=== PATIENT | female | born 1980 | race Two or more races ===

== ENCOUNTER 2018-06-03 09:18 | Emergency (ER) | payer SELFPAY ==
--- NOTE | 2018-06-03 09:35 | ER Document Report ---
HPI - HPI Patient complains to provider of: Skin rash Onset: Last week Onset/Duration: Persistent Quality of pain: No pain Pain Level: Denies Context: Patient presents complaining of pruritic skin rash to the right arm, left axillary area and bilateral sides of neck for the past week. Patient denies any new foods medications or detergents. Patient denies any known history of eczema. Associated Symptoms: Other - Skin rash Exacerbated by: Denies Relieved by: Denies Similar symptoms previously: No Recently seen / treated by doctor: No - ROS ROS below otherwise negative: Yes Systems Reviewed and Negative: Yes All other systems reviewed and negative - CONSTITUTIONAL Constitutional: DENIES: Fever, Chills - GASTROINTESTINAL Gastrointestinal: DENIES: Nausea - MUSCULOSKELETAL Musculoskeletal: REPORTS: Extremity pain - DERM Skin Color: Normal Skin Problems: Rash Past Medical History - General Information source: Patient - Social History Smoking Status: Never Smoker Chew tobacco use (# tins/day): No Frequency of alcohol use: None Drug Abuse: None Occupation: None Family History: Reviewed & Not Pertinent Patient has suicidal ideation: No Patient has homicidal ideation: No - Medical History Medical History: Negative Renal/ Medical History: Denies: Hx Peritoneal Dialysis Past Surgical History: Reports: Hx Section Vertical Provider Document - CONSTITUTIONAL Agree With Documented VS: Yes Exam Limitations: No Limitations General Appearance: WD/WN, No Apparent Distress - INFECTION CONTROL TRAVEL OUTSIDE OF THE [place] IN LAST 30 DAYS: No - HEENT HEENT: Atraumatic, Normal ENT Exam, Normocephalic - NECK Neck: Normal Inspection, Supple - RESPIRATORY Respiratory: Breath Sounds Normal, No Respiratory Distress - CARDIOVASCULAR Cardiovascular: Regular Rate, Regular Rhythm - BACK Back: Normal Inspection - MUSCULOSKELETAL/EXTREMETIES Musculoskeletal/Extremeties: MAEW - NEURO Level of Consciousness: Awake, Alert, Appropriate Motor/Sensory: No Motor Deficit - DERM Integumentary: Warm, Dry, Rash - Patient with dry raised rash to flexural aspect of right antecubital area, bilateral aspects of the anterior neck and left axillary area Course - Re-evaluation Re-evalutation: 06/03/18 09:36 Rash looks concerning for eczema, will cover with steroids and recommend frequent use of emollients. No peeling of the skin, no concern for Huang- Arnie syndrome, patient otherwise nontoxic. No concern for anaphylaxis. - Vital Signs Vital signs: Temp Pulse Resp BP Pulse Ox 98.5 F 86 16 133/88 H 98 06/03/18 09:22 06/03/18 09:22 06/03/18 09:22 06/03/18 09:22 06/03/18 09:22 Discharge - Discharge Clinical Impression: Skin rash Condition: Stable Disposition: HOME, SELF-CARE Instructions: Atopic Dermatitis (Eczema) ([facility]), Topical Steroid Cream or Ointment ([facility]) Additional Instructions: Return immediately for any new or worsening symptoms Followup with your primary care provider, call tomorrow to make a followup appointment Follow-up with a mainframe programmer analyst for any persistent problems Use a moisturizer [id number] such as Lubriderm, Cetaphil or Aquaphor at least 3 times a day. Prescriptions: Triamcinolone Acetonide [Aristocort 0.1% Cream] 1 applic TP TID #60 gm Referrals: RAHEL MANCINI DO [ACTIVE STAFF] - Follow up as needed
[2018-06-03 10:17] VITALS: BP 130/82
== END 2018-06-03 10:17 | disposition home or self-care (01) ==
LOC: ER 09:18
DX: R21 Rash and other nonspecific skin eruption (principal)
CPT/HCPCS: 99282

== ENCOUNTER → 2018-12-06 | Outpatient (CLI) | payer MEDICAID ==
--- NOTE | 2018-12-06 17:19 | RADIOLOGY REPORT (SQ) ---
EXAM DESCRIPTION: WRIST RIGHT 3 VIEWS COMPLETED DATE/TIME: 12/06/2018 5:09 pm REASON FOR STUDY: S69.91XA UNSP INJURY OF RIGHT WRIST, HAND AND FINGER(S), INIT ENCNTR S69.91XA UNS P INJURY OF RIGHT WRIST, HAND AND FINGER(S), INI COMPARISON: None. NUMBER OF VIEWS: Three views. TECHNIQUE: AP, lateral, and oblique radiographic images acquired of the right wrist. LIMITATIONS: None. FINDINGS: MINERALIZATION: Normal. BONES: No acute fracture or dislocation. No worrisome bone lesions. Normal alignment. SOFT TISSUES: No soft tissue swelling. No foreign body. OTHER: No other significant finding. IMPRESSION: 1. No acute osseous findings. TECHNICAL DOCUMENTATION: JOB ID: [id number] [employer]- All Rights Reserved Reading location - IP/workstation name: [email or web address]
== END ==
LOC: RAD 16:46
PROVIDERS: ATTEND Nurse Practitioner Acute Care
DX: S69.91XA Unspecified injury of right wrist, hand and finger(s), initial encounter (principal); X58.XXXA Exposure to other specified factors, initial encounter

== ENCOUNTER → 2019-05-26 | Outpatient (CLI) | payer MEDICAID | LOC: LAB 10:49 | PROVIDERS: ATTEND Nurse Practitioner Acute Care | DX: O23.41 Unspecified infection of urinary tract in pregnancy, first trimester (principal); Z3A.00 Weeks of gestation of pregnancy not specified | CPT/HCPCS: 87086; 87088; 87186 ==

== ENCOUNTER 2019-06-08 11:07 | Emergency (ER) | payer MEDICAID ==
--- NOTE | 2019-06-08 11:49 | ER Document Report ---
ED Medical Screen (RME) - General Chief Complaint: Abdominal Pain Stated Complaint: ABDOMINAL PAIN/ Time Seen by Provider: 06/08/19 11:40 Primary Care Provider: JACE DICKEY NP [Primary Care Provider] - Follow up as needed Mode of Arrival: Ambulatory Information source: Patient Notes: Patient presents complaining of lower abdominal pain that started yesterday. Patient states she is about 7 weeks . Patient denies any vaginal bleeding or discharge. No urinary symptoms. I have greeted and performed a rapid initial assessment of this patient. A comprehensive ED assessment and evaluation of the patient, analysis of test results and completion of the medical decision making process will be conducted by additional ED providers. TRAVEL OUTSIDE OF THE [place] IN LAST 30 DAYS: No - Related Data Allergies/Adverse Reactions: No Known Allergies Allergy (Verified 06/03/18 09:19) Past Medical History Renal/ Medical History: Denies: Hx Peritoneal Dialysis Past Surgical History: Reports: Hx Section Physical Exam - Vital signs Vitals: Temp Pulse Resp BP Pulse Ox 99.1 F 95 16 139/71 H 100 06/08/19 11:11 06/08/19 11:11 06/08/19 11:11 06/08/19 11:11 06/08/19 11:11 - Abdominal Tenderness: Tender - Lower pelvic Course - Vital Signs Vital signs: Temp Pulse Resp BP Pulse Ox 99.1 F 95 16 139/71 H 100 06/08/19 11:11 06/08/19 11:11 06/08/19 11:11 06/08/19 11:11 06/08/19 11:11 - Laboratory Result Diagrams: 06/08/19 11:34 06/08/19 11:34 Doctor's Discharge - Discharge Referrals: JACE DICKEY NP [Primary Care Provider] - Follow up as needed
[2019-06-08 11:55] LABS: ABSOLUTE BASOPHILS # (AUTO) 0.1 10^3/uL (0.0-0.2); ABSOLUTE EOSINOPHILS # (AUTO) 0.1 10^3/uL (0.0-0.6); ABSOLUTE LYMPHOCYTES (AUTO) 1.5 10^3/uL (0.5-4.7); ABSOLUTE MONOCYTES (AUTO) 0.4 10^3/uL (0.1-1.4); ABSOLUTE NEUT (AUTO) 5.1 10^3/uL (1.7-8.2); MEAN CORPUSCULAR HGB CONC 33.6 g/dL (32.0-36.0); SEGMENTED NEUTROPHILS % (AUTO) 71.5 % (42-78); TOTAL CELLS COUNTED % (AUTO) 100 %; WHITE BLOOD COUNT 7.1 10^3/uL (4.0-10.5)
[2019-06-08 11:58] LABS: BASOPHILS % (AUTO) 1.2 % (0-2); EOSINOPHILS % (AUTO) 1.4 % (0-6); HEMATOCRIT 42.8 % (36.0-47.0); HEMOGLOBIN 14.4 g/dL (12.0-15.5); LYMPHOCYTES % (AUTO) 20.4 % (13-45); MEAN CORPUSCULAR HEMOGLOBIN 28.7 pg (27.0-33.4); MEAN CORPUSCULAR VOLUME 85 fl (80-97); MONOCYTES % (AUTO) 5.5 % (3-13); PLATELET COUNT 265 10^3/uL (150-450); RED BLOOD COUNT 5.02 10^6/uL (3.72-5.28); RED CELL DISTRIBUTION WIDTH 15.4 % (11.5-14.0)
[2019-06-08 12:08] LABS: ALBUMIN 4.1 g/dL (3.5-5.0); ALKALINE PHOSPHATASE 58 U/L (38-126); ANION GAP 7 (5-19); ASPARTATE AMINO TRANSFERASE 26 U/L (14-36); BILIRUBIN,DIRECT 0.1 mg/dL (0.0-0.4); BILIRUBIN,TOTAL 0.6 mg/dL (0.2-1.3); BLOOD UREA NITROGEN 9 mg/dL (7-20); CALCIUM 9.3 mg/dL (8.4-10.2); CARBON DIOXIDE 27 mmol/L (22-30); CHLORIDE 104 mmol/L (98-107); GLUCOSE 88 mg/dL (75-110); POTASSIUM 3.6 mmol/L (3.6-5.0); TOTAL PROTEIN 7.9 g/dL (6.3-8.2)
[2019-06-08 12:20] LABS: APPEARANCE,URINE CLEAR; BILIRUBIN,URINE NEGATIVE (NEGATIVE); COLOR,URINE YELLOW; GLUCOSE, URINE NEGATIVE (NEGATIVE); KETONES,URINE NEGATIVE (NEGATIVE); LEUKOCYTE ESTERASE,URINE NEGATIVE (NEGATIVE); NITRITE,URINE NEGATIVE (NEGATIVE); PROTEIN,URINE NEGATIVE (NEGATIVE); URINE SPECIFIC GRAVITY 1.011; UROBILINOGEN,URINE NEGATIVE mg/dL (<2.0)
--- NOTE | 2019-06-08 13:40 | RADIOLOGY REPORT (SQ) ---
EXAM DESCRIPTION: U/S OB TRANSVAGINAL W/O DOP COMPLETED DATE/TIME: 06/08/2019 1:11 pm REASON FOR STUDY: pelvic pain COMPARISON: None. TECHNIQUE: Transvaginal static and realtime grayscale images acquired of the pelvis. Additional emily cted spectral and color Doppler images recorded. All images stored on PACs. LIMITATIONS: None. FINDINGS: FETUS: Single Living intrauterine . ULTRASOUND EGA: 7 weeks 1 day. ULTRASOUND IHSAN: 01/26/2020 CRL: 1.01 cm consistent with gestational age 7 weeks 1 day. FHR: 137 beats per minute. AMNIOTIC FLUID: Adequate amount. PLACENTA: Not yet developed due to early gestation. SUBCHORIONIC BLEED: None seen. UTERUS: The uterus is retroverted measuring 11.2 x 5.8 x 6.5 cm. CERVICAL LENGTH: 4.4 cm Closed. RIGHT ADNEXA: The right ovary measures 2.3 x 1.6 x 2.3 cm. Small corpus luteum cyst measuring 1.5 x 1.1 x 1.6 cm. Doppler flow the right ovary noted. LEFT ADNEXA: Left ovary nonvisualized. FREE FLUID: None. IMPRESSION: LIVING INTRAUTERINE . EGA 7 weeks 1 day. Trimester of : First trimester - 0 to 13 weeks. TECHNICAL DOCUMENTATION: JOB ID: [id number] [employer]- All Rights Reserved rev-12/14 Reading location - IP/workstation name: [email or web address]
--- NOTE | 2019-06-08 13:56 | ER Document Report ---
ED GI/ - General Chief Complaint: Abdominal Pain Stated Complaint: ABDOMINAL PAIN/ Time Seen by Provider: 06/08/19 11:40 Primary Care Provider: JACE DICKEY NP [NURSE PRACTITIONER] - Follow up as needed Mode of Arrival: Ambulatory Information source: Patient Notes: Patient presents complaining of lower abdominal pain that started yesterday. Patient states she is about 7 weeks . Patient denies any vaginal bleeding or discharge. No urinary symptoms. TRAVEL OUTSIDE OF THE [place] IN LAST 30 DAYS: No - Related Data Allergies/Adverse Reactions: No Known Allergies Allergy (Verified 06/03/18 09:19) Past Medical History - General Information source: Patient - Social History Smoking Status: Never Smoker Frequency of alcohol use: None Family History: Reviewed & Not Pertinent Patient has suicidal ideation: No Patient has homicidal ideation: No - Medical History Medical History: Negative Renal/ Medical History: Denies: Hx Peritoneal Dialysis Past Surgical History: Reports: Hx Section - Immunizations Immunizations up to date: Yes Hx Diphtheria, Pertussis, Tetanus Vaccination: Yes Review of Systems - Review of Systems Constitutional: No symptoms reported EENT: No symptoms reported Cardiovascular: No symptoms reported Respiratory: No symptoms reported Gastrointestinal: Abdominal pain Genitourinary: No symptoms reported Female Genitourinary: No symptoms reported Musculoskeletal: No symptoms reported Skin: No symptoms reported Hematologic/Lymphatic: No symptoms reported Neurological/Psychological: No symptoms reported Physical Exam - Vital signs Vitals: Temp Pulse Resp BP Pulse Ox 99.1 F 95 16 139/71 H 100 06/08/19 11:11 06/08/19 11:11 06/08/19 11:11 06/08/19 11:11 06/08/19 11:11 - Notes Notes: PHYSICAL EXAMINATION: GENERAL: Well-appearing, well-nourished and in no acute distress. HEAD: Atraumatic, normocephalic. EYES: Pupils equal round and reactive to light, extraocular movements intact, conjunctiva are normal. ENT: Nares patent, oropharynx clear without exudates. Moist mucous membranes. NECK: Normal range of motion, supple without lymphadenopathy LUNGS: Breath sounds clear to auscultation bilaterally and equal. No wheezes rales or rhonchi. HEART: Regular rate and rhythm without murmurs ABDOMEN: Soft, nontender, nondistended abdomen. No guarding, no rebound. No masses appreciated. Female : deferred Musculoskeletal: Normal range of motion, no pitting or edema. No cyanosis. NEUROLOGICAL: Cranial nerves grossly intact. Normal speech, normal gait. Normal sensory, motor exams PSYCH: Normal mood, normal affect. SKIN: Warm, Dry, normal turgor, no rashes or lesions noted. Course - Re-evaluation Re-evalutation: Laboratory 06/08/19 06/08/19 06/08/19 11:25 11:34 11:34 WBC 7.1 RBC 5.02 Hgb 14.4 Hct 42.8 MCV 85 MCH 28.7 MCHC 33.6 RDW 15.4 H Plt Count 265 Lymph % (Auto) 20.4 [place] % (Auto) 5.5 Eos % (Auto) 1.4 Baso % (Auto) 1.2 Absolute Neuts (auto) 5.1 Absolute Lymphs (auto) 1.5 Absolute Monos (auto) 0.4 Absolute Eos (auto) 0.1 Absolute Basos (auto) 0.1 Seg Neutrophils % 71.5 Sodium 138.3 Potassium 3.6 Chloride 104 Carbon Dioxide 27 Anion Gap 7 BUN 9 Creatinine 0.70 Est GFR ( Amer) > 60 Est GFR (MDRD) Non-Af > 60 Glucose 88 Calcium 9.3 Total Bilirubin 0.6 Direct Bilirubin 0.1 Neonat Total Bilirubin Not Reportable Neonat Direct Bilirubin Not Reportable Neonat Indirect Bili Not Reportable AST 26 ALT 30 Alkaline Phosphatase 58 Total Protein 7.9 Albumin 4.1 Lipase 21.9 L Beta HCG, Quant 45832.00 H Total Beta HCG POSITIVE Urine Color YELLOW Urine Appearance CLEAR Urine pH 6.0 Ur Specific [place] 1.011 Urine Protein NEGATIVE Urine Glucose (UA) NEGATIVE Urine Ketones NEGATIVE Urine Blood NEGATIVE Urine Nitrite NEGATIVE Urine Bilirubin NEGATIVE Urine Urobilinogen NEGATIVE Ur Leukocyte Esterase NEGATIVE Urine WBC (Auto) 0 Urine RBC (Auto) 1 Urine Bacteria (Auto) TRACE Squamous Epi Cells Auto 3 Urine Mucus (Auto) OCC Urine Ascorbic Acid 20 H Obstetrics Ultrasound 06/08/19 11:48 IMPRESSION: LIVING INTRAUTERINE . EGA 7 weeks 1 day. Trimester of : First trimester - 0 to 13 weeks. - Vital Signs Vital signs: Temp Pulse Resp BP Pulse Ox 98.2 F 83 17 133/86 H 100 06/08/19 14:09 06/08/19 14:09 06/08/19 14:09 06/08/19 14:09 06/08/19 14:09 - Laboratory Result Diagrams: 06/08/19 11:34 06/08/19 11:34 Laboratory results interpreted by me: 06/08/19 06/08/19 06/08/19 11:25 11:34 11:34 RDW 15.4 H Lipase 21.9 L Beta HCG, Quant 31486.00 H Urine Ascorbic Acid 20 H Discharge - Discharge Clinical Impression: Abdominal pain during Qualifiers: Trimester: first trimester Qualified Code(s): O26.891 - Other specified related conditions, first trimester Condition: Stable Disposition: HOME, SELF-CARE Additional Instructions: Your work-up today was unremarkable. Your ultrasound shows a living intrauterine of 7 weeks 1 day. Your pain is most likely coming from round ligament pain which is common during . Please return to the emergency department with any new or worsening symptoms to include worsening abdominal pain, vaginal bleeding or any other concerning symptom. Please keep any and all follow-ups with your TANK INSULATOR RUBBER, call them Sunday to schedule an appointment for this week. Referrals: JACE DICKEY, [employer]NADIAN BACON TIER [NURSE PRACTITIONER] - Follow up as needed
[2019-06-08 14:11] VITALS: BP 133/86
== END 2019-06-08 14:12 | disposition home or self-care (01) ==
LOC: ER 11:07
DX: O26.891 Other specified pregnancy related conditions, first trimester (principal); R10.30 Lower abdominal pain, unspecified; Z3A.00 Weeks of gestation of pregnancy not specified
CPT/HCPCS: 36415; 76817; 80053; 81001; 83690; 84702; 85025; 99284

== ENCOUNTER 2019-06-21 18:48 | Emergency (ER) | payer MEDICAID ==
[2019-06-21] MEDS ORDERED: METOCLOPRAMIDE HCL 10 MG TABLET PO ONE (19:10)
--- NOTE | 2019-06-21 19:10 | ER Document Report ---
ED Medical Screen (RME) - General Chief Complaint: Vaginal Bleeding Stated Complaint: VAGINAL BLEEDING Time Seen by Provider: 06/21/19 19:04 TRAVEL OUTSIDE OF THE [place] IN LAST 30 DAYS: No - HPI Notes: 06/21/19 19:09 Patient is a 39-year-old female who is approximately 9 weeks who presents complaining of vaginal bleeding that started this evening. She does have some lower pelvic pain associated. No fever. I have treated and performed a rapid initial assessment of this patient. A comprehensive ED assessment and evaluation of the patient, analysis of test results and completion of medical decision making process will be conducted by additional ED providers. PHYSICAL EXAMINATION: GENERAL: Well-appearing, well-nourished and in no acute distress. A&Ox4. Answers questions appropriately. - Related Data Allergies/Adverse Reactions: No Known Allergies Allergy (Verified 06/21/19 19:02) Past Medical History Renal/ Medical History: Denies: Hx Peritoneal Dialysis Past Surgical History: Reports: Hx Section - Immunizations Immunizations up to date: Yes Hx Diphtheria, Pertussis, Tetanus Vaccination: Yes
[2019-06-21 20:15] LABS: APPEARANCE,URINE CLEAR; BILIRUBIN,URINE NEGATIVE (NEGATIVE); COLOR,URINE STRAW; GLUCOSE, URINE NEGATIVE (NEGATIVE); KETONES,URINE NEGATIVE (NEGATIVE); PROTEIN,URINE NEGATIVE (NEGATIVE); URINE SPECIFIC GRAVITY 1.005; UROBILINOGEN,URINE NEGATIVE mg/dL (<2.0)
--- NOTE | 2019-06-21 20:23 | ER Document Report ---
ED General - General Chief Complaint: Vag Bleeding, +preg <12wks Stated Complaint: VAGINAL BLEEDING Time Seen by Provider: 06/21/19 19:04 TRAVEL OUTSIDE OF THE [place] IN LAST 30 DAYS: No - HPI Notes: Patient is a 39-year-old female, approximately 9 weeks , presenting of new onset of vaginal bleeding that started earlier this evening. Patient is also reporting some lower pelvic pain and cramping. Patient denies dysuria, back pain. Patient states nothing makes her symptoms better, and there are no exacerbating symptoms. Patient denies recent sexual intercourse. Patient states this is her third and her two prior pregnancies were full-term and noneventful. - Related Data Allergies/Adverse Reactions: No Known Allergies Allergy (Verified 06/21/19 19:02) Past Medical History - General Information source: Patient - Social History Smoking Status: Never Smoker Chew tobacco use (# tins/day): No Frequency of alcohol use: None Drug Abuse: None Family History: Reviewed & Not Pertinent Patient has suicidal ideation: No Patient has homicidal ideation: No - Past Medical History Cardiac Medical History: Reports: None Pulmonary Medical History: Reports: None EENT Medical History: Reports: None Neurological Medical History: Reports: None Endocrine Medical History: Reports: None Renal/ Medical History: Reports: None. Denies: Hx Peritoneal Dialysis Malignancy Medical History: Reports: None GI Medical History: Reports: None Musculoskeletal Medical History: Reports None Skin Medical History: Reports None Psychiatric Medical History: Reports: None Traumatic Medical History: Reports: None Infectious Medical History: Reports: None Past Surgical History: Reports: Hx Section - Immunizations Immunizations up to date: Yes Hx Diphtheria, Pertussis, Tetanus Vaccination: Yes Review of Systems - Review of Systems Constitutional: No symptoms reported EENT: No symptoms reported Cardiovascular: No symptoms reported Respiratory: No symptoms reported Gastrointestinal: No symptoms reported Genitourinary: No symptoms reported Female Genitourinary: Vaginal bleeding Musculoskeletal: No symptoms reported Skin: No symptoms reported Hematologic/Lymphatic: No symptoms reported Neurological/Psychological: No symptoms reported Physical Exam - Vital signs Vitals: Temp Pulse Resp BP Pulse Ox 98.1 F 88 16 135/74 H 100 06/21/19 19:06 06/21/19 19:06 06/21/19 19:06 06/21/19 19:06 06/21/19 19:06 - Notes Notes: PHYSICAL EXAMINATION: GENERAL: Well-appearing, well-nourished and in no acute distress. HEAD: Atraumatic, normocephalic. EYES: Pupils equal round and reactive to light, extraocular movements intact, sclera anicteric, conjunctiva are normal. ENT: nares patent, oropharynx clear without exudates. Moist mucous membranes. NECK: Normal range of motion, supple without lymphadenopathy LUNGS: Breath sounds clear to auscultation bilaterally and equal. No wheezes rales or rhonchi. HEART: Regular rate and rhythm without murmurs ABDOMEN: Soft, nontender, normoactive bowel sounds. No guarding, no rebound. No masses appreciated. EXTREMITIES: Normal range of motion, no pitting or edema. No cyanosis. NEUROLOGICAL: No focal neurological deficits. Moves all extremities spontaneo usly and on command. PSYCH: Normal mood, normal affect. SKIN: Warm, Dry, normal turgor, no rashes or lesions noted. Course - Re-evaluation Re-evalutation: 06/21/19 21:33 Results of ED RME discussed with patient and patient's significant other. Pelvic rest was recommended for the patient. Patient has a scheduled follow-up appointment with women's health clinic in about 4 weeks. Emergency signs and symptoms, reasons to return to the emergency room by calling 911 discussed with patient and patient's significant other. Both expressed understanding of diagnosis and warning signs and symptoms and reasons to return. All questions were answered prior to discharge. - Vital Signs Vital signs: Temp Pulse Resp BP Pulse Ox 98.1 F 88 16 135/74 H 100 06/21/19 19:06 06/21/19 19:06 06/21/19 19:06 06/21/19 19:06 06/21/19 19:06 06/21/19 21:34 Vital signs reviewed by this MD. - Laboratory Laboratory results interpreted by ia: 06/21/19 06/21/19 19:22 19:23 Beta HCG, Quant 451717.00 H Urine Ascorbic Acid 20 H 06/21/19 21:34 Laboratory results reviewed by this MD. - Diagnostic Test Radiology reviewed: Reports reviewed Discharge - Discharge Clinical Impression: First trimester bleeding, Intrauterine Condition: Good Disposition: HOME, SELF-CARE Instructions: Bleeding During Early ([facility]) Additional Instructions: HOME CARE INSTRUCTIONS & INFORMATION: Thank you for choosing us for your medical needs. We hope you're satisfied with the care you received. After you leave, you must properly care for your problem and, at the same time, observe its progress. Any condition can change. Some illnesses can change rapidly over hours or days. If your condition worsens, return to the Emergency Department or see your physician promptly. ABOUT YOUR X-RAYS AND EKG'S: If you had an EKG or X-rays taken, they have been read by the Emergency Physician. The X-rays and EKG's will also be read by a Radiologist or Ice Delivery Driver within 24 hours. If discrepancies are noted, you will be notified by telephone. Please be certain the ED has a correct telephone number & address where you can be reached. Also, realize that some fractures or abnormalities do not show up on initial X-rays. If your symptoms continue, see your physician. ABOUT YOUR LABORATORY TEST: If you had laboratory tests, the results have been reviewed by the Emergency Physician. Some test results (for example cultures) may not be available for several days. You will be contacted if any test result shows you need additional treatment. Please be certain the ED has a correct telephone number and address where you can be reached. ABOUT YOUR MEDICATIONS: You will receive instructions on how to take your medicine on the prescription label you receive. Additional information may be provided by the Pharmacy. If you have questions afterwards, call the ED for clarification or further instructions. Some prescribed medications may cause drowsiness. Do not perform tasks such as driving a car or operating machinery without consulting your Pharmacist. If you feel you need a refill of pain medication, your condition will need re-evaluation. Please do not call for a refill of any medication. ABOUT YOUR SIGNATURE: Signature of this document acknowledges to followin. Understanding that you received emergency treatment and that you may be released before al medical problems are known or treated. Please be certain the ED has a correct phone number & address where you can be reached. 2. Acknowledgement that you will arrange for follow-up care as recommended. 3. Authorization for the Emergency Physician to provide information to your follow-up Physician in order to maximize your care. AT ANY TIME, IF YOUR SYMPTOMS CHANGE SIGNIFICANTLY OR WORSEN OR YOU DEVELOP NEW SYMPTOMS, RETURN TO THE EMERGENCY DEPARTMENT IMMEDIATELY FOR RE-EVALUATION. OUR GOAL IS TO PROVIDE EXCELLENT MEDICAL CARE! WE HOPE THAT WE HAVE MET YOUR EXPECTATIONS DURING YOUR EMERGENCY DEPARTMENT VISIT AND THAT YOU FEEL YOU HAVE RECEIVED EXCELLENT CARE! Return to the Emergency Department without delay if any worse. Referrals: [facility] [Provider Group] - Follow up in 1 month Print Language: Burmese
--- NOTE | 2019-06-21 20:59 | RADIOLOGY REPORT (SQ) ---
EXAM DESCRIPTION: [facility]: US TRANSVAGINAL CLINICAL HISTORY: 39 years Female; bleeding, approx 9wks TECHNIQUE: Endovaginal pelvic ultrasound was performed. COMPARISON: 06/08/2019 FINDINGS: Uterus: Single intrauterine gestational sac is again noted. pole is identified, CRL 2.32 cm, 9 weeks 0 days heart rate 175 BPM No adjacent hematoma Cervix 3.2 cm long, closed Ovaries not evaluated No free fluid IMPRESSION: 1. Single viable IUP, EGA 9 weeks 0 days, EDC 01/24/2020 2. No hematoma.
[2019-06-21 21:52] VITALS: BP 123/71
== END 2019-06-21 21:53 | disposition home or self-care (01) ==
LOC: ER 18:48
DX: O20.9 Hemorrhage in early pregnancy, unspecified (principal); Z3A.09 9 weeks gestation of pregnancy
CPT/HCPCS: 86900; 86901; 36415; 84702; 81001; 76817; J3490; 99284

== ENCOUNTER 2020-01-19 07:45 | Inpatient (IN) | payer MEDICAID ==
[2020-01-16 12:35] LABS: APPEARANCE,URINE SLIGHTLY-CLOUDY; BILIRUBIN,URINE NEGATIVE (NEGATIVE); COLOR,URINE YELLOW; GLUCOSE, URINE 50 mg/dL (NEGATIVE); KETONES,URINE TRACE mg/dL (NEGATIVE); LEUKOCYTE ESTERASE,URINE NEGATIVE (NEGATIVE); NITRITE,URINE NEGATIVE (NEGATIVE); PROTEIN,URINE NEGATIVE (NEGATIVE); URINE SPECIFIC GRAVITY 1.016; UROBILINOGEN,URINE NEGATIVE mg/dL (<2.0)
[2020-01-16 12:38] LABS: ABSOLUTE LYMPHOCYTES (AUTO) 1.3 10^3/uL (0.5-4.7); ABSOLUTE MONOCYTES (AUTO) 0.6 10^3/uL (0.1-1.4); ABSOLUTE NEUT (AUTO) 5.4 10^3/uL (1.7-8.2); BASOPHILS % (AUTO) 0.3 % (0-2); EOSINOPHILS % (AUTO) 0.6 % (0-6); HEMATOCRIT 41.3 % (36.0-47.0); HEMOGLOBIN 14.8 g/dL (12.0-15.5); LYMPHOCYTES % (AUTO) 17.6 % (13-45); MEAN CORPUSCULAR HEMOGLOBIN 33.2 pg (27.0-33.4); MEAN CORPUSCULAR HGB CONC 35.8 g/dL (32.0-36.0); MEAN CORPUSCULAR VOLUME 93 fl (80-97); MONOCYTES % (AUTO) 8.4 % (3-13); PLATELET COUNT 207 10^3/uL (150-450); RED BLOOD COUNT 4.45 10^6/uL (3.72-5.28); RED CELL DISTRIBUTION WIDTH 13.1 % (11.5-14.0); SEGMENTED NEUTROPHILS % (AUTO) 73.1 % (42-78); TOTAL CELLS COUNTED % (AUTO) 100 %; WHITE BLOOD COUNT 7.4 10^3/uL (4.0-10.5)
[2020-01-16 12:47] LABS: URINE AMPHETAMINES SCREEN NEGATIVE; URINE BARBITURATES SCREEN NEGATIVE; URINE BENZODIAZEPINES SCREEN NEGATIVE; URINE COCAINE SCREEN NEGATIVE; URINE MARIJUANA (THC) SCREEN NEGATIVE; URINE METHADONE SCREEN NEGATIVE; URINE PHENCYCLIDINE SCREEN NEGATIVE
[2020-01-16 13:54] LABS: CHLAM PCR NOT DETECTED (NOT DETECT)
[2020-01-21] MEDS ORDERED: CEFAZOLIN 2 GM/D5W RTU 2 GM/50 ML RTUPB IV PRN (07:19)
[2020-01-21] MEDS ORDERED: LIDOCAINE 0.5% INJ-PF (5 MG/ML) 50 ML SDV SUBCUT PRN (07:20)
[2020-01-21] MEDS ORDERED: RINGERS SOLUTION,LACTATED 1,000 ML IV PRN ×3 (07:21→09:55)
[2020-01-21] MEDS ORDERED: OXYTOCIN 10 UNIT/ML VIAL ONE (07:37)
[2020-01-21] MEDS ORDERED: MORPHINE SULFATE 10 MG/ML INJ ONE ×2 (07:37→09:48)
[2020-01-21] MEDS ORDERED: FENTANYL CITRATE INJ/PF 100 MCG/2 ML AMPUL ONE (07:37)
[2020-01-21] MEDS ORDERED: OXYTOCIN/0.9 % SODIUM CHLORIDE 30 UNIT/500 ML RTUINJ ONE (07:37)
[2020-01-21] MEDS ORDERED: MIDAZOLAM 2 MG/2 ML INJ ONE (07:37)
[2020-01-21] MEDS ORDERED: ONDANSETRON HCL INJ/PF 4 MG/2 ML SDV ONE (07:38)
[2020-01-21] MEDS ORDERED: CEFAZOLIN 2 GM/D5W RTU 2 GM/50 ML RTUPB IV ONE (07:41)
[2020-01-21] MEDS ORDERED: FENTANYL CITRATE INJ/PF 100 MCG/2 ML AMPUL IV PRN ×3 (08:54)
[2020-01-21] MEDS ORDERED: PROMETHAZINE HCL INJ 25 MG/1 ML VIAL IV PRN ×3 (08:54→09:55)
[2020-01-21] MEDS ORDERED: MEPERIDINE HCL/PF INJ 25 MG/1 ML DISP.SYRIN IV PRN (08:54)
[2020-01-21] MEDS ORDERED: DIPHENHYDRAMINE HCL 50 MG/ML VIAL IV PRN (08:54)
[2020-01-21] MEDS: MORPHINE SULFATE 10 MG/ML INJ IV PRN ×2 (09:51→10:45)
[2020-01-21] MEDS ORDERED: ACETAMINOPHEN 1,000 MG/100 ML RTUPB IV PRN (09:55)
[2020-01-21] MEDS ORDERED: HYDROMORPHONE HCL INJ/PF 2 MG/ML AMPULE IV PRN (09:55)
[2020-01-21] MEDS ORDERED: OXYTOCIN/0.9 % SODIUM CHLORIDE 30 UNIT/500 ML RTUINJ IV PRN (09:55)
[2020-01-21] MEDS ORDERED: OXYCODONE-ACETAMINOPHEN 5-325 MG TABLET PO PRN (09:55)
[2020-01-21] MEDS ORDERED: MEASLES,MUMPS&RUBELLA VACC/PF 0.5 ML VIAL SUBCUT PRN (09:55)
[2020-01-21] MEDS ORDERED: SIMETHICONE 80 MG TAB.CHEW PO PRN (09:55)
[2020-01-21] MEDS ORDERED: ACETAMINOPHEN 325 MG TABLET PO PRN (09:55)
[2020-01-21] MEDS ORDERED: DIPH/PERTUSS(ACELL)/TETANUS VAC/PF 0.5 ML SYR (>=10YO) IM PRN (09:55)
--- NOTE | 2020-01-21 09:59 | Brief Operative Note ---
BRIEF OPERATIVE REPORT DATE OF SURGERY: 01/21/20 TIME OF SURGERY: 08:30 PREOPERATIVE DIAGNOSIS: , 39+1ega, AMA, 2vc, H/o setion x 2, Carrier of group b streptococcus POSTOPERATIVE DIAGNOSIS: TATI - delivered, uterine fibroids SURGEON: SUJEY BEARD FINDINGS: VMI delivered at 0835, Nuchal cord x 1, significant pelvic adhesions with anterior abdominal wall adhesions to anterior uterus with omentum adhesions in anterior abdominal wall as well. 3cm fibroid enmeshed in adhesions required excision for repair of lower uterine segment. IVF 1100ml, UOP 150ml, QBL pending. COMPLICATIONS: Adhesions ESTIMATED BLOOD LOSS: 700ml TISSUE REMOVED OR ALTERED: placenta and cord sent to pathology, fibroid TECHNICAL PROCEDURE: Repeat section, Scar revision, myomectomy
[2020-01-21] MEDS ORDERED: ACETAMINOPHEN 1,000 MG/100 ML RTUPB IV ONE (11:26)
[2020-01-21] MEDS: IBUPROFEN 800 MG TABLET PO SCH ×3 (13:38→23:49)
--- NOTE | 2020-01-21 15:06 | Delivery Summary ---
Del Sum A-C Datetime Report Generated by CPN: 01/21/2020 15:06 DELIVERY PERSONNEL DELIVERY PERSONNEL: [id number] Delivery Doctor:: Starr Tenorio MD WIND FARM ENGINEER:: Raymundo Polk CRNA Production Mechanic:: Felecia Kulkarni RN General Maintenance Technician/QA AUTOMATION ARCHITECT: Caity Taylor, SPRING PRODUCTION SUPERVISOR General Maintenance Technician/QA AUTOMATION ARCHITECT: Naomy Miramontes, SPRING PRODUCTION SUPERVISOR MATERNAL INFORMATION Delivery Anesthesia: Spinal Medications After Delivery: Pitocin 30 Units in 500ml NS/D5W Estimated Blood Loss (ml): 700 Maternal Complications: None STAGES OF LABOR Stage 3 hr: 0 Stage 3 min: 2 CSECTION DELIVERY Primary Indication: Repeat Elective Secondary Indication: Repeat Elective CSection Urgency: Scheduled CSection Incidence: Repeat Labor: N/A Elective: Elective CSection Incision: Lower Uterine Transverse BABY A INFORMATION Infant Delivery Date/Time: 01/21/2020 08:35 Method of Delivery: Nurse Controlled Delivery: No Born in Route : No : N/A Forceps: N/A Vacuum Extraction: N/A Shoulder Dystocia : No PRESENTATION/POSITION BABY A Presentation: Cephalic Cephalic Presentation: Vertex PLACENTA INFORMATION BABY A Placenta Delivery Time : 01/21/2020 08:37 Placenta Method of Delivery: Manual Removal Placenta Status: Delivered SCORES BABY A Heart Rate 1 min: >100 bpm Resp Effort 1 min: Good Cry Reflex Irritability 1 min: Cough or Sneeze or Pulls Away Muscle Tone 1 min: Active Motion Color 1 min: Body [place], Extremities Blue SCORE 1 MIN: 9 Heart Rate 5 min: >100 bpm Resp Effort 5 min: Good Cry Reflex Irritability 5 min: Cough or Sneeze or Pulls Away Muscle Tone 5 min: Active Motion Color 5 min: Body [place], Extremities Blue SCORE 5 MIN: 9 INFORMATION BABY A Gestational Age at Delivery: 39.0 Gestational Status: Full Term- 39- 40.6 Weeks Outcome : Liveborn Condition : Stable Sex: Male IDENTIFICATION BABY A Verification Date/Time: 01/21/2020 08:35 ID Band Number: [id number] Mother's Name Verified: Yes RN Verifying : Yasemin Kulkarni RN Additional Verifying Personnel: Viral Llanos RN WEIGHT/LENGTH BABY A Infant Birthweight (gm): 3465 Weight (lb): 7 Infant Weight (oz): 10 Length (in): 20.00 Length (cm): 50.80 CORD INFORMATION BABY A No. Cord Vessels: 3 Nuchal Cord : Around Neck x1, Loose Cord Blood Taken: Yes-For Eval (Mom's Blood Type - or O+)
[2020-01-21] MEDS: DOCUSATE SODIUM 100 MG CAPSULE PO SCH (17:30)
[2020-01-21] MEDS: OXYCODONE-ACETAMINOPHEN 5-325 MG TABLET PO PRN (22:15)
[2020-01-22] MEDS: IBUPROFEN 800 MG TABLET PO SCH ×4 (05:57→23:24)
[2020-01-22 07:08] LABS: HEMATOCRIT 33.1 % (36.0-47.0); HEMOGLOBIN 11.5 g/dL (12.0-15.5); MEAN CORPUSCULAR HGB CONC 34.7 g/dL (32.0-36.0); MEAN CORPUSCULAR VOLUME 95 fl (80-97); PLATELET COUNT 187 10^3/uL (150-450); RED BLOOD COUNT 3.48 10^6/uL (3.72-5.28); RED CELL DISTRIBUTION WIDTH 13.3 % (11.5-14.0)
--- NOTE | 2020-01-22 07:18 | Operative Report ---
Operative Report DATE OF SURGERY: 01/21/20 PREOPERATIVE DIAGNOSIS: , 39+1ega, AMA, 2vc, H/o setion x 2, Ca rrier of group b streptococcus POSTOPERATIVE DIAGNOSIS: TATI - delivered, uterine fibroids, hypertrophy of scar OPERATION: Repeat Section, Myomectomy, Scar revision SURGEON: SUJEY BEARD ANESTHESIA: Spinal TISSUE REMOVED OR ALTERED: placenta and cord sent to pathology, Fibroid COMPLICATIONS: adhesions ESTIMATED BLOOD LOSS: 700 QUANTITATIVE BLOOD LOSS: 745 INTRAOPERATIVE FINDINGS: VMI delivered at 0835, Apgars 9/9, weight 7#10oz (3465oz), Nuchal cord x 1, significant pelvic adhesions with anterior abdominal wall adhesions to anterior uterus with omentum adhesions in anterior abdominal wall as well. 3cm fibroid enmeshed in adhesions required excision for repair of lower uterine segment. IVF 1100ml, UOP 150ml, QBL pending. PROCEDURE: Indications: [39yo at 29+1ega presents for repeat section due to history of section x2. She declines BTL. c/b AMA, 2 vessel cord. The risks, benefits, alternatives were reviewed and she desires to proceed with planned procedure.] Procedure: The patient was taken to the operating room where spinal anesthesia was obtained and found to be adequate. She was then prepped and draped in the normal sterile fashion and placed in the dorsal supine position with a leftward tilt. A Pfannenstiel skin incision was then made and carried through to the underlying layers of the fascia with the scalpel. The fascia was incised in the midline and the incision extended laterally with the Vogt scissors. The superior aspect of the fascial incision was then grasped with Yoel clamps elevated and the underlying rectus muscles dissected off [bluntly]. Attention was then turned to the inferior aspect of the fascial incision which in a similar fashion was grasped, tented up with Yoel clamps, and the rectus muscles dissected off [bluntly]. The rectus muscles were then in the midline and the peritoneum at the amount identified and sharply and dense uterine adhesions (from the anterior uterine body) and underlying fibroid dissected off sharply (and removed). The peritoneal incision was then extended superiorly and inferiorly with good visualization of the bladder. The bladder blade was inserted and the vesicouterine peritoneum identified grasped with Finnish pickups and entered sharply with the Metzenbaum scissors. This incision was then extended laterally with the Metzenbaum scissors and a bladder flap created digitally. The bladder blade was then reinserted and the lower uterine segment incised in a transverse fashion with the scalpel. The uterine incision was then extended bluntly. The bladder blade was removed and the infant's head was delivered from cephalic presentation atraumatically. The nose and mouth were suctioned and the cord doubly clamped and cut. And the was handed off to waiting pediatricians. The placenta was then delivered spontaneously and the uterus exteriorized and cleared of all clots and debris. The uterine incision was then repaired with 1- 0 Vicryl in a running locked fashion. A second layer of the same suture was used to obtain hemostasis via imbrication of the initial layer. The bladder flap was then repaired with 3-0 chromic in a running fashion. Site of fibroid extraction repaired with 2-0 vicryl for hemostasis. The uterus was returned to the patient's abdomen and Surgicel was placed overlying the uterine incision to provide additional hemostasis. The gutters were cleared of all clots and debris. All operative sites were noted to be hemostatic. The fascia was reapproximated with 0 Vicryl in a running fashion from each lateral edge to the midline. The skin was closed with 3-0 Monocryl in a running subcuticular fashion with overlying Dermabond for additional dressing as well as wound closure. The patient tolerated the procedure well. Sponge lap needle and instrument counts are correct times2. 2 g of Ancef were given prior to skin incision. The patient was taken to the recovery area awake and in stable condition.
[2020-01-22] MEDS: DOCUSATE SODIUM 100 MG CAPSULE PO SCH ×2 (10:12→17:54)
[2020-01-22] MEDS: PRENATAL VITAMIN W DHA CAPSULE PO SCH (10:12)
--- NOTE | 2020-01-22 14:25 | PDOC PROGRESS REPORT ---
Subjective-OB Progress Note for:: 01/22/20 Subjective: reports bleeding slowing,pain controlled with current meds, denies needs Physical Exam (OB) Vital Signs: Temp Pulse Resp BP Pulse Ox 98.4 F 125 H 16 131/65 H 98 01/22/20 11:41 01/22/20 11:41 01/22/20 11:41 01/22/20 11:41 01/22/20 11:41 Intake & Output 01/21/20 01/22/20 01/23/20 06:59 06:59 06:59 Intake Total 1630 480 Output Total 1150 300 Balance 480 180 - Incision: Open - no s/s infection - Abdomen Description: Tender, Round Fundal Description: Firm, Midline Fundal Height: u/u - u/2 - Abdominal Distension: No distension - Extremities Lower extremities: Valery's sign - neg Calf: Normal, Nontender Objective-Diagnostic Laboratory: 01/22/20 06:15 01/22/20 06:15 WBC 13.0 H RBC 3.48 L Hgb 11.5 L Hct 33.1 L MCV 95 MCH 33.0 MCHC 34.7 RDW 13.3 Plt Count 187 Assessment and Plan(PN) - Time Spent with Patient Time with patient: Less than 15 minutes - Disposition Anticipated Discharge: Home Within: within 24 hours
[2020-01-22] MEDS: OXYCODONE-ACETAMINOPHEN 5-325 MG TABLET PO PRN (19:55)
[2020-01-23] MEDS: IBUPROFEN 800 MG TABLET PO SCH ×2 (05:45→13:00)
[2020-01-23] MEDS: PRENATAL VITAMIN W DHA CAPSULE PO SCH (09:57)
[2020-01-23] MEDS: DOCUSATE SODIUM 100 MG CAPSULE PO SCH (09:57)
--- NOTE | 2020-01-23 10:07 | PDOC DISCHARGE SUMMARY ---
Impression - Admit/DC Date/PCP Admission Date/Primary Care Provider: 01/21/20 06:39 Discharge Date: 01/23/20 - POD #2, doing well, bottle feeding, O+, Rubella immune - Discharge Diagnosis (1) Advanced maternal age (AMA) in Is this a current diagnosis for this admission?: Yes (2) Carrier or suspected carrier of group B Streptococcus Is this a current diagnosis for this admission?: Yes (3) Previous section Is this a current diagnosis for this admission?: Yes (4) S/P repeat low transverse Is this a current diagnosis for this admission?: Yes - Additional Information Resuscitation Status: Full Code Discharge Diet: As Tolerated, Regular Discharge Activity: Activity As Tolerated, No Driving, No Lifting Over 10 Pounds, Pelvic Rest Prescriptions: Ibuprofen [Motrin 800 mg Tablet] 800 mg PO Q6 #60 tablet Oxycodone HCl/Acetaminophen [Percocet 5-325 mg Tablet] 1 tab PO ASDIR PRN #24 tablet PRN Reason: Pain Scale Of 4 Home Medications: Ibuprofen [Motrin 800 mg Tablet] 800 mg PO Q6 #60 tablet 01/23/20 Oxycodone HCl/Acetaminophen [Percocet 5-325 mg Tablet] 1 tab PO ASDIR PRN #24 tablet 01/23/20 Vit/Dha [ Multi + Dha Capsule] 1 cap PO DAILY capsule 01/23/20 HPI Reason(s) for Admission: Ceasarean Section-Repeat Intrapartum Procedure(s): Other - removal of uterine fibroid during c/s Hospital Course Hospital Course: routine Results Laboratory Results: WBC 13.0 10^3/uL (4.0-10.5) H 01/22/20 06:15 RBC 3.48 10^6/uL (3.72-5.28) L 01/22/20 06:15 Hgb 11.5 g/dL (12.0-15.5) L 01/22/20 06:15 Hct 33.1 % (36.0-47.0) L 01/22/20 06:15 MCV 95 fl (80-97) 01/22/20 06:15 MCH 33.0 pg (27.0-33.4) 01/22/20 06:15 MCHC 34.7 g/dL (32.0-36.0) 01/22/20 06:15 RDW 13.3 % (11.5-14.0) 01/22/20 06:15 Plt Count 187 10^3/uL (150-450) 01/22/20 06:15 Lymph % (Auto) 17.6 % (13-45) 01/16/20 12:08 [place] % (Auto) 8.4 % (3-13) 01/16/20 12:08 Eos % (Auto) 0.6 % (0-6) 01/16/20 12:08 Baso % (Auto) 0.3 % (0-2) 01/16/20 12:08 Absolute Neuts (auto) 5.4 10^3/uL (1.7-8.2) 01/16/20 12:08 Absolute Lymphs (auto) 1.3 10^3/uL (0.5-4.7) 01/16/20 12:08 Absolute Monos (auto) 0.6 10^3/uL (0.1-1.4) 01/16/20 12:08 Absolute Eos (auto) 0.0 10^3/uL (0.0-0.6) 01/16/20 12:08 Absolute Basos (auto) 0.0 10^3/uL (0.0-0.2) 01/16/20 12:08 Seg Neutrophils % 73.1 % (42-78) 01/16/20 12:08 Urine Color YELLOW 01/16/20 11:50 Urine Appearance SLIGHTLY-CLOUDY 01/16/20 11:50 Urine pH 6.0 (5.0-9.0) 01/16/20 11:50 Ur Specific [place] 1.016 01/16/20 11:50 Urine Protein NEGATIVE mg/dL (NEGATIVE) 01/16/20 11:50 Urine Glucose (UA) 50 mg/dL (NEGATIVE) H 01/16/20 11:50 Urine Ketones TRACE mg/dL (NEGATIVE) H 01/16/20 11:50 Urine Blood NEGATIVE (NEGATIVE) 01/16/20 11:50 Urine Nitrite NEGATIVE (NEGATIVE) 01/16/20 11:50 Urine Bilirubin NEGATIVE (NEGATIVE) 01/16/20 11:50 Urine Urobilinogen NEGATIVE mg/dL (<2.0) 01/16/20 11:50 Ur Leukocyte Esterase NEGATIVE (NEGATIVE) 01/16/20 11:50 Urine WBC (Auto) 1 /HPF 01/16/20 11:50 Urine RBC (Auto) 1 /HPF 01/16/20 11:50 Urine Bacteria (Auto) TRACE /HPF 01/16/20 11:50 Squamous Epi Cells Auto 5 /HPF 01/16/20 11:50 Urine Mucus (Auto) FEW /LPF 01/16/20 11:50 Urine Ascorbic Acid 20 (NEGATIVE) H 01/16/20 11:50 Urine Opiates Screen NEGATIVE 01/16/20 11:50 Urine Methadone Screen NEGATIVE 01/16/20 11:50 Ur Barbiturates Screen NEGATIVE 01/16/20 11:50 Ur Phencyclidine Scrn NEGATIVE 01/16/20 11:50 Ur Amphetamines Screen NEGATIVE 01/16/20 11:50 U Benzodiazepines Scrn NEGATIVE 01/16/20 11:50 Urine Cocaine Screen NEGATIVE 01/16/20 11:50 U Marijuana (THC) Screen NEGATIVE 01/16/20 11:50 Chlamydia DNA (PCR) NOT DETECTED (NOT DETECT) 01/16/20 11:50 COVID-19 Source NASOPHARYNGEAL 01/16/20 12:00 COVID-19 ([place]) NOT DETECTED 01/16/20 12:00 N.gonorrhoeae DNA (PCR) NOT DETECTED (NOT DETECT) 01/16/20 11:50 Blood Type O POSITIVE 01/19/20 10:37 Antibody Screen NEGATIVE 01/19/20 10:37 Plan Plan of Treatment: f/up at [facility] in one week for incision check Time Spent: Less than 30 Minutes
[2020-01-23 11:03] VITALS: BP 110/61
== END 2020-01-23 14:07 | disposition home or self-care (01) | DRG 788 ==
LOC: 2S 01-21 06:39
PROVIDERS: ADMIT Student in an Organized Health Care Education/Training Program; ATTEND Student in an Organized Health Care Education/Training Program
PROC: 10D00Z1 Extraction of Products of Conception, Low, Open Approach (ICD-10-PCS; principal; 2020-01-21)
PROC: 0UB90ZZ Excision of Uterus, Open Approach (ICD-10-PCS; 2020-01-21)
DX: O34.211 Maternal care for low transverse scar from previous cesarean delivery (principal); N85.8 Other specified noninflammatory disorders of uterus; O99.824 Streptococcus B carrier state complicating childbirth; Z3A.39 39 weeks gestation of pregnancy; O69.81X0 Labor and delivery complicated by cord around neck, without compression, not applicable or unspecified; O34.13 Maternal care for benign tumor of corpus uteri, third trimester; O99.89 Other specified diseases and conditions complicating pregnancy, childbirth and the puerperium; D25.9 Leiomyoma of uterus, unspecified; N73.6 Female pelvic peritoneal adhesions (postinfective); O69.89X0 Labor and delivery complicated by other cord complications, not applicable or unspecified; Z37.0 Single live birth
CPT/HCPCS: 1961; 36415; 59025; 80307; 81001; 85025; 85027; 86850; 86900; 86901; 87491; 87591; 87635; 88305; 88307; 94799; C9803; J0131; J0690; J1170; J2250; J2270; J2405; J2550; J2590; J3010; J3490; J7120